=== PATIENT | male | born 1955 | race Caucasian/White ===

== ENCOUNTER → 2017-08-07 | Outpatient (CLI) | payer BC ==
[2017-08-07 07:20] LABS: Basophils % (A) 1 %; Eosinophils # (A) 0.2 k/uL (0-0.7); Eosinophils % (A) 3 %; HCT 39.5 % (39.0-53.0); HGB 13.2 gm/dL (13.0-17.5); Lymphocytes # (A) 1.2 k/uL (1.0-4.8); Lymphocytes % (A) 21 %; MCH 29.8 pg (25.0-35.0); MCHC 33.4 g/dL (31.0-37.0); MCV 89.2 fL (80.0-100.0); Monocytes # (A) 0.4 k/uL (0-1.0); Monocytes % (A) 6 %; Neutrophils # (A) 3.9 k/uL (1.3-7.7); Neutrophils % (A) 68 %; Platelet Count 375 k/uL (150-450); RBC 4.43 m/uL (4.30-5.90); RDW 12.7 % (11.5-15.5); WBC 5.8 k/uL (3.8-10.6)
[2017-08-07 09:47] LABS: Erythrocyte Sedimentation Rate 28 mm/hr (0-15)
== END | disposition home or self-care (01) ==
LOC: LABWHC1 06:47
PROVIDERS: ATTEND Podiatrist Foot & Ankle Surgery
DX: M86.9 Osteomyelitis, unspecified (principal); M10.9 Gout, unspecified
CPT/HCPCS: 36415; 84550; 85025; 85652; 86431

== ENCOUNTER → 2019-10-06 | Outpatient (CLI) | payer BC ==
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
== END | disposition home or self-care (01) ==
LOC: RADUSWWP 10:55
PROVIDERS: ATTEND Internal Medicine Geriatric Medicine
DX: R93.6 Abnormal findings on diagnostic imaging of limbs (principal)

== ENCOUNTER → 2022-07-08 | Outpatient (CLI) | payer BC ==
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
== END ==
LOC: SLEEP 15:16
PROVIDERS: ATTEND Internal Medicine Critical Care Medicine
DX: G47.33 Obstructive sleep apnea (adult) (pediatric) (principal); Z99.89 Dependence on other enabling machines and devices; E78.5 Hyperlipidemia, unspecified; I10 Essential (primary) hypertension; J30.9 Allergic rhinitis, unspecified; R06.83 Snoring; R40.0 Somnolence; Z68.33 Body mass index [BMI] 33.0-33.9, adult; Z86.16 Personal history of COVID-19
CPT/HCPCS: 99211

== ENCOUNTER 2022-08-17 19:44 | Outpatient (CLI) | payer BC ==
--- NOTE | 2022-09-01 13:26 | P.PCN ---
Date of Procedure: 08/17/22 Operative Findings: Polysomnography report Date of service is 08/17/2022 Pertinent history Hypersomnia with an [place] score of 11, consider the possibility of obstructive sleep apnea. Loud snoring and witnessed apneas Mallampati class IV with crowding of the posterior pharynx Body mass index of 33.2 Hypertension Hyperlipidemia ALLERGIC rhinitis Previous history of Covid 19 infection. Technical description The patient was studied using a standard complex polysomnography protocol that included recording of the 2 EKG, Central, occipital and frontal EEG, right and left outer canthus EOG, submental EMG, right and left anterior tibialis EMG, respiratory airflow by thermocouple and or pressure/flow transducer, respiratory efforts by abdominal and thoracic PVDF belts, oxygen saturation by cable oximetry. Position by observation synchronized the PSG. 4 children 12 and nontender and select patients, ETCO2 may be added to the recording. Equipment used: [employer]. [place] score was 13 out of 24 Sleep architecture The total time in bed was 476.5 minutes. The total sleep time was 389.5 minutes with a sleep efficiency of 81.7%. The patient's sleep latency was 10 minutes. There was a total of 20.5% REM sleep and REM latency was 131 minutes. The sleep architecture was characterized by 5.4% stage I, 74.1% stage II, 0% initially and 20.5% REM sleep. Sleep continuity summary the arousal index was 0.2 per hour. Respiratory analysis The respiratory analysis showed a total of 36 obstructive events of which 5 were obstructive, 1 was mixed and there was a total of 30 obstructive hypopneas (mean taking the AASM rule 1a of at least 3% saturation on an arousal) and there were 28 obstructive hypopneas meeting the AASM rule 1b with at least 4% saturation. No central apneas were encountered. The apnea hypoxemia index recorded was 5.5. Oxygenation analysis the lowest pulse ox was 88%. Based on pulse ox was 97% while awake. This patient spent approximately 90 minutes of the sleep time below pulse ox of 89%. Minimum pulse ox during REM was 88%. Periodic limb movement activity The total number of periodic limb movement activity was 93 with an index of 14.3. There were only 15 periodic limb movement with arousals with an index of 13. Cardiac summary Average heart rate was 49, minimum heart rate was 46 and a maximum of 52 Assessment Mild obstructive sleep apnea with an AHI of 5.5 with limited nocturnal oxygen saturations Chronic hypersomnia Hypertension Hyperlipidemia Plan This is a case of mild obstructive sleep apnea. The patient's disease severity is minimal at this point in time. The patient remains obviously qualify for CPAP therapy. However elected given conservative approaches of losing weight and optimizing sleep hygiene measures and monitoring the situation and symptoms accordingly. I'm going to have discussion with the patient and follow him up closely. CPAP will be operated the patient's condition becomes more symptomatic. Otherwise, conservative measures should be implemented. Alternatively, he can also use a form compliance for his mild obstructive sleep apnea.
== END 2022-08-18 23:59 ==
LOC: 3 N SLEEP 19:44
PROVIDERS: ATTEND Internal Medicine Critical Care Medicine
DX: G47.33 Obstructive sleep apnea (adult) (pediatric) (principal)
CPT/HCPCS: 95810